=== PATIENT | female | born 1945 ===

== ENCOUNTER 2018-08-06 09:27 | Outpatient (CLI) | payer OTHER | END 2018-08-06 09:31 | disposition home or self-care (01) | LOC: SONOGRAMA 09:27 | DX: E04.1 Nontoxic single thyroid nodule (principal) ==

== ENCOUNTER → 2025-08-04 | Emergency (ER) | payer OTHER | END | disposition left against medical advice (07) | LOC: ER 10:59 | DX: Z53.21 Procedure and treatment not carried out due to patient leaving prior to being seen by health care provider (principal) ==